=== PATIENT | female | born 1960 | race African-American/Black ===

== ENCOUNTER 2016-12-02 00:22 | Emergency (ER) | payer MEDICARE ==
[~2016-12-02] VITALS: Ht 167.6 cm; Wt 67.2 kg
[~2016-12-02 00:22] MED LIST: 1-ME1LIQ PO; ASPI81 PO; CLON.1 PO; CLON0.5T PO; COLA50CA PO; FLUO20TA20 PO; GABA100C4 PO; ISOS30TA3 PO; LEVEMIR SQ; LISI-363 PO; MECL25 PO; METO50CR PO; NIAC250C6 PO; NITR0.4S SL; OXYC5 PO; PROC10TA4 PO; SEVEL800 PO; ZOCO40TA PO; ZOFR4TAB3 PO
[2016-12-02 00:36] VITALS: BP 132/54; PULSE 66; RESP 16; TEMP 98.6; O2SAT 100
--- NOTE | 2016-12-02 00:40 | PD ---
HPI Chief Complaint: General Weakness Time Seen by Provider: 00:28 Travel History International Travel<30 days: No Contact w/Intl Traveler<30days: No Traveled to known affect area: No History of Present Illness HPI 56-year-old female with ESRD on HD, performs her own hemodialysis at home, brought in by embolus from home because while performing dialysis this evening the patient became very weak and lightheaded. She checked her blood pressure and it was 80 systolic. When EMS arrived her blood pressure was 130/60. When she arrived to the emergency department the patient reports that she feels improved. She denies fevers or recent illness. No chest pain or dyspnea. No melena or hematochezia. PFSH Past Medical History Anemia: Yes Arthritis: Yes (spine/ spinal stenosis) Asthma: Yes (enviromental asthma) Blood Disorders: Yes Anxiety: Yes Depression: Yes Cancer: No Cardiac Catheterization: Yes Cardiovascular Problems: Yes (STENTS, ORTHOSTATIC HYPOTENSION) High Cholesterol: Yes Chest Pain: Yes Cerebrovascular Accident: No Coronary Artery Disease: Yes Diabetes: Yes (INSULIN DEPENDENT) Dialysis: Yes (HEMODIALYSIS --) Diminished Hearing: No Endocrine: Yes Gastrointestinal Disorders: Yes GERD: Yes Glaucoma: Yes Genitourinary: Yes Headaches: Yes Hepatitis: No Hiatal Hernia: No Hypertension: Yes Immune Disorder: No Implanted Vascular Access Dvce: Yes (LUE AV FISTULA) Kidney Stones: No Musculoskeletal: Yes Neurologic: Yes Psychiatric: No Reproductive: No Respiratory: Yes (ASTHMA) Immunizations Current: No Renal Failure: Yes Sickle Cell Disease: Yes (TRAIT) Thyroid Disease: No Ulcer: Yes Menopausal: Yes Tubal Ligation: Yes Past Surgical History Abdominal Surgery: Yes (CHOLECYSTECTOMY) Body Medical Devices: peritoneal tenchoff tube Cardiac Surgery: Yes (LAD CARDIAC STENT, LUE AV FISTULA W/ STENT) Section: Yes (X2) Cholecystectomy: Yes Coronary Stent: Yes Endocrine Surgery: No Eye Surgery: Yes (RIGHT EYE VITRECTOMY, CATARACT SURGERY) Genitourinary Surgery: Yes (Tenchoff tube) Gynecologic Surgery: Yes (TUBAL LIG., HYSTERECTOMY, C SECTION) Hysterectomy: Yes Pacemaker: No Thoracic Surgery: No Other Surgery: Yes (LASER SX FOR VETRECTOMY, VAS CATH IN PLACE) Social History Alcohol Use: No Tobacco Use: No Substance Use: No Allergies-Medications (Allergen,Severity, Reaction): Coded Allergies: Cat Dander (Verified Allergy, Severe, 4/3/15) Dog Dander (Verified Allergy, Severe, 07/25/14) Nipride (Verified Allergy, Severe, HYPOTENSION, 07/25/14) Morphine (Unverified Adverse Reaction, Intermediate, Nausea/Vomiting, ) Reported Meds & Prescriptions Reported Meds & Active Scripts Active Zofran ODT (Ondansetron HCl) 4 Mg Tab 4 Mg PO Q6 PRN May substitute, non-ODT form Do not take within 6 hours of taking Reglan. Reported Oxycodone (Oxycodone HCl) 5 Mg Cap 5 Mg PO Q4H PRN Niacin 250 Mg Cap 500 Mg PO DAILY Metoprolol Succinate ER 50 mg (Metoprolol Succinate) 50 Mg Tab 50 Mg PO BID Antivert (Meclizine HCl) 25 Mg Tab 12.5 Mg PO Q6 PRN Lisinopril 20 mg (Lisinopril) 20 Mg Tab 1 Tab PO DAILY Isosorbide Mononitrate Er (Isosorbide Mononitrate) 30 Mg Tab 30 Mg PO DAILY Levemir Insulin (Insulin Detemir) 100 Units/Ml Inj 7 Units SQ BID Gabapentin 100 Mg Cap 100 Mg PO BID Colace (Docusate Sodium) 50 Mg Cap 50 Mg PO BID Catapres 0.1 mg (Clonidine HCl) 0.1 Mg Tab 1 Tab PO BID Hold evening dose for BP less than 150/90 Amlodipine Besylate 10 mg (Amlodipine Besylate) 10 Mg Tab 1 Tab PO DAILY Fluoxetine (Fluoxetine HCl) 20MG Cap 20 Mg PO DAILY Renvela (Sevelamer Carbonate) 800 Mg Tab 800 Mg PO TID *TAKE WITH MEALS* Compazine (Prochlorperazine Maleate) 10 Mg Tab 10 Mg PO Q6HPRN Take 1 tablet by mouth every 6 hours as needed for nausea and/or vomiting (generic for compazine) Clonazepam 0.5 Mg Tab 0.5 Mg PO BIDPRN Aspirin 81 Mg Tab 81 Mg PO DAILY Zocor 40 mg (Simvastatin) 40 Mg Tab 40 Mg PO HS Nitrostat (Nitroglycerin) 0.4 Mg Subl 0.4 Mg SL PRN 1 TAB SL EVERY 5 MINS X 3 PRN CHEST PAIN Review of Systems Except as stated in HPI: all other systems reviewed are Neg Physical Exam Narrative GENERAL: Well-developed, well-nourished, awake, alert, no apparent distress. SKIN: Focused skin assessment warm/dry. HEAD: Atraumatic. Normocephalic. EYES: Pupils equal and round. No scleral icterus. No injection or drainage. ENT: Mucous membranes pink and moist. NECK: Trachea midline. No JVD. CARDIOVASCULAR: Regular rate and rhythm. Left upper extremity fistula with thrill and bruit with dialysis cannulas in place. RESPIRATORY: No accessory muscle use. Clear to auscultation. Breath sounds equal bilaterally. GASTROINTESTINAL: Abdomen soft, non-tender, nondistended. MUSCULOSKELETAL: No obvious deformities. No clubbing. No cyanosis. No edema. NEUROLOGICAL: Awake and alert. No obvious cranial nerve deficits. Motor grossly within normal limits. Normal speech. PSYCHIATRIC: Appropriate mood and affect; insight and judgment normal. Data Data Last Documented VS Vital Signs Date Time Temp Pulse Resp B/P Pulse Ox O2 Delivery O2 Flow Rate FiO2 12/02/16 00:36 98.6 66 16 132/54 100 Orders Complete Blood Count With Diff (12/02/16 00:37) Comprehensive Metabolic Panel (12/02/16 00:37) Iv Access Insert/Monitor (12/02/16 00:37) Ecg Monitoring (12/02/16 00:37) Oximetry (12/02/16 00:37) Sodium Chloride 0.9% Flush (Ns Flush) (12/02/16 00:45) Electrocardiogram (12/02/16 00:37) Labs Laboratory Tests Test 12/02/16 01:05 White Blood Count 4.8 TH/MM3 Red Blood Count 3.91 MIL/MM3 Hemoglobin 11.6 GM/DL Hematocrit 34.0 % Mean Corpuscular Volume 87.0 FL Mean Corpuscular Hemoglobin 29.8 PG Mean Corpuscular Hemoglobin 34.2 % Concent Red Cell Distribution Width 14.6 % Platelet Count 101 TH/MM3 Mean Platelet Volume 9.0 FL Neutrophils (%) (Auto) 61.5 % Lymphocytes (%) (Auto) 26.2 % Monocytes (%) (Auto) 10.7 % Eosinophils (%) (Auto) 0.6 % Basophils (%) (Auto) 1.0 % Neutrophils # (Auto) 2.9 TH/MM3 Lymphocytes # (Auto) 1.3 TH/MM3 Monocytes # (Auto) 0.5 TH/MM3 Eosinophils # (Auto) 0.0 TH/MM3 Basophils # (Auto) 0.0 TH/MM3 CBC Comment DIFF FINAL Differential Comment Sodium Level 136 MEQ/L Potassium Level 4.4 MEQ/L Chloride Level 97 MEQ/L Carbon Dioxide Level 29.5 MEQ/L Anion Gap 10 MEQ/L Blood Urea Nitrogen 57 MG/DL Creatinine 8.82 MG/DL Estimat Glomerular Filtration 6 ML/MIN Rate Random Glucose 107 MG/DL Calcium Level 8.0 MG/DL Total Bilirubin 0.5 MG/DL Aspartate Amino Transf 24 U/L (AST/SGOT) Alanine Aminotransferase 22 U/L (ALT/SGPT) Alkaline Phosphatase 254 U/L Total Protein 7.3 GM/DL Albumin 3.7 GM/DL [facility] Medical Decision Making Medical Screen Exam Complete: Yes Emergency Medical Condition: Yes Interpretation(s) EKG: Sinus, rate 65, normal axis, normal intervals, no acute ischemic abnormality. Differential Diagnosis Hypotension during dialysis, anemia, metabolic abnormality, dysrhythmia Narrative Course Initial vital signs show heart rate 66, blood pressure 132/54, pulse ox 100% on room air, oral temp of 98.6F CBC shows WBC 4.8, hemoglobin 11.6, hematocrit 34, platelets 101. CMP is remarkable for BUN 57, creatinine 8.82, GFR 6, otherwise unremarkable. Potassium is 4.4. Bicarbonate is 29.5. She was observed in the emergency department for 2 hours. On reassessment she states she is feeling a lot better. She likely suffered from a hypotensive episode while doing home hemodialysis today. She feels well enough to go home. I believe she is stable for discharge home with outpatient follow-up with a primary care physician this week. She was informed on when to return to the emergency department. She verbalizes understanding and agreement with plan. Diagnosis Primary Impression: Episode of generalized weakness Referrals: Primary Care Physician 3 days Additional Instructions: Follow-up with a primary care physician or your arc trimmer this week. Return to the emergency department for worsening symptoms or any other concerns. Disposition: 01 DISCHARGE HOME Condition: Stable Jayden Fontenot MD Dec 02, 2016 00:39 Jayden Fontenot MD Dec 02, 2016 00:39
[2016-12-02] MEDS ORDERED: SODIUM CHLORIDE 0.9% FLUSH 10 ML FLUSH IV FLUSH PRN (00:45)
[2016-12-02 01:25] LABS: AUTOMATED NEUTROPHIL # 2.9 TH/MM3 (1.8-7.7); EOSINOPHIL % 0.6 % (0.0-4.0); HEMO FLAGS DIFF FINAL; LYMPH % 26.2 % (9.0-44.0); LYMPHOCYTE # 1.3 TH/MM3 (1.0-4.8); MEAN CORPUSCULAR HEMOGLOBIN 29.8 PG (27.0-34.0); MEAN CORPUSCULAR HGB CONC 34.2 % (32.0-36.0); MONO % 10.7 % (0.0-8.0); NEUT % 61.5 % (16.0-70.0); PLATELET COUNT 101 TH/MM3 (150-450); RED BLOOD COUNT 3.91 MIL/MM3 (4.00-5.30); RED CELL DISTRIBUTION WIDTH 14.6 % (11.6-17.2); WHITE BLOOD COUNT 4.8 TH/MM3 (4.0-11.0)
[2016-12-02 01:36] LABS: ALKALINE PHOSPHATASE 254 U/L (45-117); TOTAL BILIRUBIN ADULT 0.5 MG/DL (0.2-1.0)
[2016-12-02 01:37] LABS: ALT (GPT) 22 U/L (10-53); ANION GAP 10 MEQ/L (5-15); AST (GOT) 24 U/L (15-37); BICARBONATE 29.5 MEQ/L (21.0-32.0); CHLORIDE 97 MEQ/L (98-107); GLOMERULAR FILTRATION RATE 6 ML/MIN (>89); POTASSIUM 4.4 MEQ/L (3.5-5.1); SODIUM (NA) 136 MEQ/L (136-145)
[2016-12-02 01:38] LABS: BLOOD UREA NITROGEN 57 MG/DL (7-18)
--- NOTE | 2016-12-02 15:36 | EKG ---
Date Performed: 12/02/2016 Time Performed: 01:09:12 PTAGE: 56 years EKG: Sinus rhythm Compared to prior tracing no significant change NORMAL ECG PREVIOUS TRACING : 07/25/2014 02.14 DOCTOR: Glenn Saucedo Interpretating Date/Time 12/02/2016 15:34:31
== END 2016-12-02 03:22 | disposition home or self-care (01) ==
LOC: NEPC 00:22
DX: R53.1 Weakness (principal); R42 Dizziness and giddiness; D64.9 Anemia, unspecified; J45.909 Unspecified asthma, uncomplicated; I25.10 Atherosclerotic heart disease of native coronary artery without angina pectoris; E78.00 Pure hypercholesterolemia, unspecified; I12.9 Hypertensive chronic kidney disease with stage 1 through stage 4 chronic kidney disease, or unspecified chronic kidney disease; E11.22 Type 2 diabetes mellitus with diabetic chronic kidney disease; N18.9 Chronic kidney disease, unspecified
CPT/HCPCS: 80053; 85025; 93005; 99284

== ENCOUNTER 2017-05-30 18:33 | Inpatient (IN) | payer MEDICARE, MEDICAID ==
[2017-05-30 18:41] VITALS: BP 199/90; PULSE 71; RESP 18; TEMP 97.9; O2SAT 99
--- NOTE | 2017-05-30 19:44 | PD ---
HPI Chief Complaint: General Weakness Time Seen by Provider: 19:28 Travel History International Travel<30 days: No Contact w/Intl Traveler<30days: No Traveled to known affect area: No History of Present Illness HPI 57-year-old female to history of end-stage renal disease on dialysis Tuesdays, , Saturdays, presents via EMS for reported syncopal event. She reports over the past few days she has been having intermittent substernal chest pressure as well as a frontal headache, decreased appetite. She missed her dialysis on Monday because she wasn't feeling well. Today she was getting into the car in order to go to dialysis when she believes that she passed out. She reports that when she came to her neighbor and paramedics were there. She believes that she may been in a car for 3 hours based on the time. She reports that she currently feels somewhat better, has a slight frontal headache but no chest pressure. She denies any blurred vision, current dizziness, weakness, nausea or vomiting, abdominal pain. She has no other complaints at this time. PFSH Past Medical History Hx Anticoagulant Therapy: Yes (HEPARIN FOR FLUSH) Anemia: Yes Arthritis: Yes (spine/ spinal stenosis) Asthma: Yes (enviromental asthma) Blood Disorders: Yes Anxiety: Yes Depression: Yes Cancer: No Cardiac Catheterization: Yes Cardiovascular Problems: Yes (CAD, STENTS) High Cholesterol: Yes Chest Pain: Yes Cerebrovascular Accident: No Coronary Artery Disease: Yes Diabetes: Yes Patient Takes Glucophage: No Dialysis: Yes (HEMODIALYSIS -W-) Diminished Hearing: No Endocrine: Yes Gastrointestinal Disorders: Yes GERD: Yes Glaucoma: Yes Genitourinary: Yes Headaches: Yes Hepatitis: No Hiatal Hernia: No Heparin Induced Thrombocytopen: Yes (von willebrand disorder) Hypertension: Yes Immune Disorder: No Implanted Vascular Access Dvce: Yes (LUE AV FISTULA) Kidney Stones: No Medical other: Yes (GERD, ARTHRITIS) Musculoskeletal: Yes Neurologic: Yes Psychiatric: No Reproductive: No Respiratory: Yes (ASTHMA) Immunizations Current: No Renal Failure: Yes Sickle Cell Disease: Yes (TRAIT) Thyroid Disease: No Ulcer: Yes ?: Not Menopausal: Yes Tubal Ligation: Yes Past Surgical History Abdominal Surgery: Yes (CHOLECYSTECTOMY) Body Medical Devices: peritoneal tenchoff tube Cardiac Surgery: Yes (LAD CARDIAC STENT, LUE AV FISTULA W/ STENT) Section: Yes (X2) Cholecystectomy: Yes Coronary Stent: Yes Endocrine Surgery: No Eye Surgery: Yes (RIGHT EYE VITRECTOMY, CATARACT SURGERY) Genitourinary Surgery: Yes (Tenchoff tube) Gynecologic Surgery: Yes (TUBAL LIG., HYSTERECTOMY, C SECTION) Hysterectomy: Yes Pacemaker: No Thoracic Surgery: No Other Surgery: Yes (LASER SX FOR VETRECTOMY, VAS CATH IN PLACE) Social History Alcohol Use: No Tobacco Use: No Substance Use: No Allergies-Medications (Allergen,Severity, Reaction): Coded Allergies: cat dander (Unverified Allergy, Severe, 05/30/17) dog dander (Unverified Allergy, Severe, 05/30/17) nitroprusside sodium (Unverified Allergy, Severe, HYPOTENSION, 05/30/17) morphine (Unverified Adverse Reaction, Intermediate, Nausea/Vomiting, ) Reported Meds & Prescriptions Reported Meds & Active Scripts Active Zofran ODT (Ondansetron HCl) 4 Mg Tab 4 Mg PO Q6 PRN May substitute, non-ODT form Do not take within 6 hours of taking Reglan. Reported Oxycodone (Oxycodone HCl) 5 Mg Cap 5 Mg PO Q4H PRN Niacin 250 Mg Cap 500 Mg PO DAILY Metoprolol Succinate ER 50 mg (Metoprolol Succinate) 50 Mg Tab 50 Mg PO BID Antivert (Meclizine HCl) 25 Mg Tab 12.5 Mg PO Q6 PRN Lisinopril 20 mg (Lisinopril) 20 Mg Tab 1 Tab PO DAILY Isosorbide Mononitrate Er (Isosorbide Mononitrate) 30 Mg Tab 30 Mg PO DAILY Levemir Insulin (Insulin Detemir) 100 Units/Ml Inj 7 Units SQ BID Gabapentin 100 Mg Cap 100 Mg PO BID Colace (Docusate Sodium) 50 Mg Cap 50 Mg PO BID Catapres 0.1 mg (Clonidine HCl) 0.1 Mg Tab 1 Tab PO BID Hold evening dose for BP less than 150/90 Amlodipine Besylate 10 mg (Amlodipine Besylate) 10 Mg Tab 1 Tab PO DAILY Fluoxetine (Fluoxetine HCl) 20MG Cap 20 Mg PO DAILY Renvela (Sevelamer Carbonate) 800 Mg Tab 800 Mg PO TID *TAKE WITH MEALS* Compazine (Prochlorperazine Maleate) 10 Mg Tab 10 Mg PO Q6HPRN Take 1 tablet by mouth every 6 hours as needed for nausea and/or vomiting (generic for compazine) Clonazepam 0.5 Mg Tab 0.5 Mg PO BIDPRN Aspirin 81 Mg Tab 81 Mg PO DAILY Zocor 40 mg (Simvastatin) 40 Mg Tab 40 Mg PO HS Nitrostat (Nitroglycerin) 0.4 Mg Subl 0.4 Mg SL PRN 1 TAB SL EVERY 5 MINS X 3 PRN CHEST PAIN Review of Systems Except as stated in HPI: all other systems reviewed are Neg Physical Exam Narrative GENERAL: Well-developed well-nourished female in no acute distress. SKIN: Warm and dry. HEAD: Atraumatic. Normocephalic. EYES: Pupils equal and round. No scleral icterus. No injection or drainage. ENT: No nasal bleeding or discharge. Mucous membranes pink and moist. NECK: Trachea midline. No JVD. CARDIOVASCULAR: Regular rate and rhythm. No murmur appreciated. RESPIRATORY: No accessory muscle use. Clear to auscultation. Breath sounds equal bilaterally. GASTROINTESTINAL: Abdomen soft, non-tender, nondistended. Hepatic and splenic margins not palpable. MUSCULOSKELETAL: No obvious deformities. No clubbing. No cyanosis. No edema. Left upper extremity AV fistula with palpable thrill. NEUROLOGICAL: Awake and alert. No obvious cranial nerve deficits. Motor grossly within normal limits. Normal speech. PSYCHIATRIC: Appropriate mood and affect; insight and judgment normal. Data Data Last Documented VS Vital Signs Date Time Temp Pulse Resp B/P (MAP) Pulse Ox O2 Delivery O2 Flow Rate FiO2 05/30/17 20:22 85 16 201/91 (127) 98 Room Air 05/30/17 18:41 97.9 Orders Orders Electrocardiogram (05/30/17 19:40) Complete Blood Count With Diff (05/30/17 19:40) Comprehensive Metabolic Panel (05/30/17 19:40) Magnesium (Mg) (05/30/17 19:40) Ckmb (Isoenzyme) Profile (05/30/17 19:40) Troponin I (05/30/17 19:40) Act Partial Throm Time (Ptt) (05/30/17 19:40) Prothrombin Time / Inr (Pt) (05/30/17 19:40) Ct Brain W/O Iv Contrast(Rout) (05/30/17 19:40) Blood Glucose (05/30/17 19:40) Ecg Monitoring (05/30/17 19:40) Iv Access Insert/Monitor (05/30/17 19:40) Oximetry (05/30/17 19:40) Sodium Chloride 0.9% Flush (Ns Flush) (05/30/17 19:45) Phosphorus (Po4) (05/30/17 19:40) Metoprolol Tartrate (Lopressor) (05/30/17 20:30) Amlodipine (Norvasc) (05/30/17 20:30) CKMB (05/30/17 20:20) CKMB% (05/30/17 20:20) Potassium, Serum (K) (05/31/17 00:44) Calcium Gluconate Inj (Calcium Gluconate (05/30/17 21:45) Insulin Human Regular Inj (Novolin R Inj (05/30/17 22:00) Dextrose 50% In Radha (Vial) Inj (D50w (Vi (05/30/17 21:45) Albuterol Concentrated Neb (Albuterol Co (05/30/17 21:45) Consult Nephrology (05/30/17 ) Admit Order (Ed Use Only) (05/30/17 21:54) Labs Laboratory Tests Test 05/30/17 20:20 White Blood Count 4.4 TH/MM3 Red Blood Count 4.81 MIL/MM3 Hemoglobin 13.3 GM/DL Hematocrit 41.5 % Mean Corpuscular Volume 86.2 FL Mean Corpuscular Hemoglobin 27.6 PG Mean Corpuscular Hemoglobin Concent 32.0 % Red Cell Distribution Width 17.5 % Platelet Count 239 TH/MM3 Mean Platelet Volume 8.1 FL Neutrophils (%) (Auto) 80.8 % Lymphocytes (%) (Auto) 11.2 % Monocytes (%) (Auto) 7.8 % Eosinophils (%) (Auto) 0.0 % Basophils (%) (Auto) 0.2 % Neutrophils # (Auto) 3.6 TH/MM3 Lymphocytes # (Auto) 0.5 TH/MM3 Monocytes # (Auto) 0.3 TH/MM3 Eosinophils # (Auto) 0.0 TH/MM3 Basophils # (Auto) 0.0 TH/MM3 CBC Comment DIFF FINAL Differential Comment Prothrombin Time 10.6 SEC Prothromb Time International Ratio 1.0 RATIO Activated Partial Thromboplast Time 28.4 SEC Blood Urea Nitrogen 106 MG/DL Creatinine 11.30 MG/DL Random Glucose 112 MG/DL Total Protein 7.6 GM/DL Albumin 3.9 GM/DL Calcium Level 6.7 MG/DL Phosphorus Level 4.5 MG/DL Magnesium Level 2.3 MG/DL Alkaline Phosphatase 299 U/L Aspartate Amino Transf (AST/SGOT) 27 U/L Alanine Aminotransferase (ALT/SGPT) 32 U/L Total Bilirubin 0.6 MG/DL Sodium Level 139 MEQ/L Potassium Level 6.5 MEQ/L Chloride Level 103 MEQ/L Carbon Dioxide Level 23.3 MEQ/L Anion Gap 13 MEQ/L Estimat Glomerular Filtration Rate 4 ML/MIN Protein Corrected Calcium 6.5 MG/DL Total Creatine Kinase 158 U/L Creatine Kinase MB 2.0 NG/ML Troponin I 0.04 NG/ML MDM Medical Decision Making Medical Screen Exam Complete: Yes Emergency Medical Condition: Yes Medical Record Reviewed: Yes Differential Diagnosis Electrolyte abnormality, hypertensive urgency, intracranial hemorrhage, arrhythmia, dehydration, ACS Narrative Course 57-year-old female history of incisional disease presents with intermittent headache, lightheadedness, chest pressure over the past few days, missed her dialysis 3 days ago. Today she had a syncopal event in her car prior to going to dialysis today. On initial examination she is hypertensive-she did not take her nighttime doses of metoprolol and amlodipine. They were ordered for her. She was placed on ECG monitoring pulse oximetry. Twelve-lead EKG was obtained revealing sinus rhythm with peaked T waves. CT of the brain, chest x-ray, lab work was obtained. Upon reexamination her blood pressure has improved to 177/80. Lab work is notable for potassium 6.5, creatinine 11.3, protein corrected calcium 6.5. I discussed with the on-call sports physiotherapist Dr. Guzman who plans on having her dialyzed tonight. The patient will be given insulin and dextrose, calcium gluconate for treatment of her hyperkalemia/hypocalcemia. I discussed with the hospitalist Dr. Chin who is agreeable with admission for observation. Diagnosis Primary Impression: Hyperkalemia Additional Impressions: Hypocalcemia Syncope Admitting Information Admitting Physician Requests: Observation Antonino Robertson May 30, 2017 19:44
[2017-05-30] MEDS ORDERED: SODIUM CHLORIDE 0.9% FLUSH 10 ML FLUSH IVF PRN (19:45)
--- NOTE | 2017-05-30 20:18 | RADRPT ---
EXAM DATE/TIME: 05/30/2017 20:03 [facility] COMPARISON: CT BRAIN W/O CONTRAST, June 24, 2010, 20:49. INDICATIONS : Dizziness. RADIATION DOSE: 56.77 CTDIvol (mGy) MEDICAL HISTORY : Hypertension. Chronic obstructive pulmonary disease. Renal failure, chronic. SURGICAL HISTORY : Nephrectomy, left. ENCOUNTER: Initial ACUITY: 1 day PAIN SCALE: 8/10 LOCATION: cranial TECHNIQUE: Multiple contiguous axial images were obtained of the head. Using automated exposure control and adj ustment of the mA and/or kV according to patient size, radiation dose was kept as low as reasonably a chievable to obtain optimal diagnostic quality images. DICOM format image data is available electro nically for review and comparison. FINDINGS: CEREBRUM: The ventricles are normal for age. No evidence of midline shift, mass lesion, hemorrhage or acute in farction. No extra-axial fluid collections are seen. POSTERIOR FOSSA: The cerebellum and brainstem are intact. The 4th ventricle is midline. The cerebellopontine angle i s unremarkable. EXTRACRANIAL: The visualized portion of the orbits is intact. SKULL: The calvaria is intact. No evidence of skull fracture. CONCLUSION: Unremarkable and stable CT scan of the brain compared to the prior exam from 2010. Maurice Mac MD on May 30, 2017 at 20:15 Board Certified Radiologist. This report was verified electronically.
[2017-05-30 20:21] VITALS: RESP 18
[2017-05-30 20:22] VITALS: BP 201/91; PULSE 85; RESP 16; O2SAT 98
[2017-05-30] MEDS ORDERED: METOPROLOL TARTRATE 50 MG TAB PO ONE (20:30)
--- NOTE | 2017-05-30 20:54 | PD ---
Data Data Last Documented VS Vital Signs Date Time Temp Pulse Resp B/P (MAP) Pulse Ox O2 Delivery O2 Flow Rate FiO2 05/30/17 20:22 85 16 201/91 (127) 98 Room Air 05/30/17 18:41 97.9 Orders Orders Electrocardiogram (05/30/17 19:40) Complete Blood Count With Diff (05/30/17 19:40) Comprehensive Metabolic Panel (05/30/17 19:40) Magnesium (Mg) (05/30/17 19:40) Ckmb (Isoenzyme) Profile (05/30/17 19:40) Troponin I (05/30/17 19:40) Act Partial Throm Time (Ptt) (05/30/17 19:40) Prothrombin Time / Inr (Pt) (05/30/17 19:40) Ct Brain W/O Iv Contrast(Rout) (05/30/17 19:40) Blood Glucose (05/30/17 19:40) Ecg Monitoring (05/30/17 19:40) Iv Access Insert/Monitor (05/30/17 19:40) Oximetry (05/30/17 19:40) Sodium Chloride 0.9% Flush (Ns Flush) (05/30/17 19:45) Phosphorus (Po4) (05/30/17 19:40) Metoprolol Tartrate (Lopressor) (05/30/17 20:30) Amlodipine (Norvasc) (05/30/17 20:30) CKMB (05/30/17 20:20) CKMB% (05/30/17 20:20) Calcium Gluconate Inj (Calcium Gluconate (05/30/17 21:45) Insulin Human Regular Inj (Novolin R Inj (05/30/17 22:00) Dextrose 50% In Radha (Vial) Inj (D50w (Vi (05/30/17 21:45) Albuterol Concentrated Neb (Albuterol Co (05/30/17 21:45) Consult Nephrology (05/30/17 ) Admit Order (Ed Use Only) (05/30/17 21:54) Labs Laboratory Tests Test 05/30/17 20:20 White Blood Count 4.4 TH/MM3 Red Blood Count 4.81 MIL/MM3 Hemoglobin 13.3 GM/DL Hematocrit 41.5 % Mean Corpuscular Volume 86.2 FL Mean Corpuscular Hemoglobin 27.6 PG Mean Corpuscular Hemoglobin Concent 32.0 % Red Cell Distribution Width 17.5 % Platelet Count 239 TH/MM3 Mean Platelet Volume 8.1 FL Neutrophils (%) (Auto) 80.8 % Lymphocytes (%) (Auto) 11.2 % Monocytes (%) (Auto) 7.8 % Eosinophils (%) (Auto) 0.0 % Basophils (%) (Auto) 0.2 % Neutrophils # (Auto) 3.6 TH/MM3 Lymphocytes # (Auto) 0.5 TH/MM3 Monocytes # (Auto) 0.3 TH/MM3 Eosinophils # (Auto) 0.0 TH/MM3 Basophils # (Auto) 0.0 TH/MM3 CBC Comment DIFF FINAL Differential Comment Prothrombin Time 10.6 SEC Prothromb Time International Ratio 1.0 RATIO Activated Partial Thromboplast Time 28.4 SEC Blood Urea Nitrogen 106 MG/DL Creatinine 11.30 MG/DL Random Glucose 112 MG/DL Total Protein 7.6 GM/DL Albumin 3.9 GM/DL Calcium Level 6.7 MG/DL Phosphorus Level 4.5 MG/DL Magnesium Level 2.3 MG/DL Alkaline Phosphatase 299 U/L Aspartate Amino Transf (AST/SGOT) 27 U/L Alanine Aminotransferase (ALT/SGPT) 32 U/L Total Bilirubin 0.6 MG/DL Sodium Level 139 MEQ/L Potassium Level 6.5 MEQ/L Chloride Level 103 MEQ/L Carbon Dioxide Level 23.3 MEQ/L Anion Gap 13 MEQ/L Estimat Glomerular Filtration Rate 4 ML/MIN Protein Corrected Calcium 6.5 MG/DL Total Creatine Kinase 158 U/L Creatine Kinase MB 2.0 NG/ML Troponin I 0.04 NG/ML [facility] Medical Record Reviewed: Yes Supervised Visit with SHEFALI: Yes Narrative Course I, Dr. Pimentel, have reviewed the advance practice practitioner's documentation and am in agreement, met with the patient face to face, made the diagnosis, and the medical decision making was done by me. The patient was initially evaluated by Antonino. Please see their complete history and physical. *My assessment and Findings: The patient presents with a history of being on hemodialysis and unfortunately missing 2 of her recent dialysis sessions. The patient had a syncopal event earlier today and also experienced some chest pressure. During the course of the patients emergency department visit, the patients history, examination, and differential diagnosis were reviewed with the patient. The patient was placed on a conveyor monitor with oximetry and frequent blood pressure monitoring. The patient had IV access obtained and blood work sent for analysis. The patient was initially provided Medication for treatment of her hypertension. The patients laboratory studies were reviewed and remarkable for A white count of 4.4, hemoglobin 13.3, platelets 239 with 80.8 neutrophils. CMP is remarkable for a potassium of 6.5 which was treated with an albuterol nebulizer treatment dextrose followed by insulin administration, and calcium gluconate. The patient's BUN is 106, creatinine 11 point, protein corrected calcium is 6.5, alk phos is 299. Cardiac enzymes within normal limits. Radiology studies were reviewed and remarkable for a CT scan of the brain that shows no acute abnormality. The patient's case was discussed with the patient's medical health researcher who plans to do dialysis this evening. The patient will be admitted to the [facility]. Diagnosis Primary Impression: End stage kidney disease Additional Impressions: Hyperkalemia Syncope Qualified Codes: R55 - Syncope and collapse Chest pain Qualified Codes: R07.9 - Chest pain, unspecified Admitting Information Admitting Physician Requests: it Abi Pimentel MD May 30, 2017 20:54
[2017-05-30 21:03] LABS: AUTOMATED NEUTROPHIL # 3.6 TH/MM3 (1.8-7.7); BASOPHIL % 0.2 % (0.0-2.0); HEMATOCRIT 41.5 % (35.0-46.0); HEMOGLOBIN 13.3 GM/DL (11.6-15.3); LYMPH % 11.2 % (9.0-44.0); LYMPHOCYTE # 0.5 TH/MM3 (1.0-4.8); MEAN CELL VOLUME 86.2 FL (80.0-100.0); MEAN CORPUSCULAR HEMOGLOBIN 27.6 PG (27.0-34.0); MEAN PLATELET VOLUME 8.1 FL (7.0-11.0); MONO % 7.8 % (0.0-8.0); MONOCYTE # 0.3 TH/MM3 (0-0.9); NEUT % 80.8 % (16.0-70.0); PLATELET COUNT 239 TH/MM3 (150-450); RED BLOOD COUNT 4.81 MIL/MM3 (4.00-5.30); RED CELL DISTRIBUTION WIDTH 17.5 % (11.6-17.2); WHITE BLOOD COUNT 4.4 TH/MM3 (4.0-11.0)
[2017-05-30 21:15] LABS: PROTHROMBIN TIME - PATIENT 10.6 SEC (9.8-11.6)
[2017-05-30 21:35] LABS: BLOOD UREA NITROGEN 106 MG/DL (7-18)
[2017-05-30 21:36] LABS: ALBUMIN 3.9 GM/DL (3.4-5.0); ALKALINE PHOSPHATASE 299 U/L (45-117); ALT (GPT) 32 U/L (10-53); AST (GOT) 27 U/L (15-37); CALCIUM 6.7 MG/DL (8.5-10.1); GLOMERULAR FILTRATION RATE 4 ML/MIN (>89); GLUCOSE,RANDOM 112 MG/DL (74-106); MAGNESIUM 2.3 MG/DL (1.5-2.5); PHOSPHORUS 4.5 MG/DL (2.5-4.9); SODIUM (NA) 139 MEQ/L (136-145); TOTAL BILIRUBIN ADULT 0.6 MG/DL (0.2-1.0); TOTAL PROTEIN 7.6 GM/DL (6.4-8.2)
[2017-05-30 21:37] LABS: BICARBONATE 23.3 MEQ/L (21.0-32.0); CHLORIDE 103 MEQ/L (98-107); TROPONIN I 0.04 NG/ML (0.02-0.05)
[2017-05-30 21:38] LABS: CALCIUM-PROTEIN CORRECTED 6.5 MG/DL (8.5-10.1)
[2017-05-30] MEDS ORDERED: RESP: ALBUTEROL CONC 2.5 MG/0.5 ML NEB INH ONE (21:45)
[2017-05-30] MEDS ORDERED: DEXTROSE 50% IN WATER 50 ML VIAL(D50) IV PUSH ONE (21:45)
[2017-05-30] MEDS ORDERED: CALCIUM GLUCONATE 10% 1 GM/10 ML VIAL SLOW IVP ONE (21:45)
[2017-05-30] MEDS ORDERED: INSULIN HUMAN REGULAR 1,000 UNITS/10 ML VIAL IV PUSH ONE (22:00)
--- NOTE | 2017-05-30 22:37 | HHI.HP ---
HPI Service [facility] Hospitalists Primary Care Physician Nick Lazo MD Admission Diagnosis syncope, chest pain, cephalgia, hyperkalemia, hypocalcemia Chief Complaint: LOC, fatigue, malaise Travel History International Travel<30 Days: No Contact w/Intl Traveler <30 Da: No Traveled to Known Affected Are: No History of Present Illness 57-year-old female to history of end-stage renal disease on dialysis Tuesdays, , Saturdays, presents via EMS for reported syncopal event. She reports over the past few days she has been having dizziness, malaise, frontal headache, decreased appetite. Denies fevers. She denied CP presently or recently on my questioning, but reportedly told ER provider that she had had some intermittent chest pressure over last few days. Review of record indicates that she has had intermittent CP symptoms for several yrs. Her last heart cath on record was Mar 2012 demonstrating patent stent in LAD and no other significant CAD. She had neg lexiscan stress test Mar 2014. She missed her dialysis on Monday because she wasn't feeling well. Today she was getting into the car in order to go to dialysis when she believes that she passed out. She reports that when she came to her neighbor, who is her mandaen buckle and button maker, and paramedics were there. She believes that she may been in a car for up to 3 hours based on the time. She reports that she currently feels somewhat better, has a slight frontal headache but no chest pressure. She denies any blurred vision, current dizziness, weakness, nausea or vomiting, abdominal pain. She has no other complaints at this time. Denies any fevers or productive cough. Only produces small amount of urine every other day. Previously was on home hemodialysis, but recently resumed HD at clinic. She reports that she is soon due for revision of her AV fistula. Review of Systems Constitutional: COMPLAINS OF: Diaphoretic episodes, Fatigue, Change in appetite Eyes: DENIES: Blurred vision, Diplopia, Eye inflammation, Eye pain, Vision loss , Photosensitivity, Double Vision Ears, nose, mouth, throat: DENIES: Tinnitus, Hearing loss, Vertigo, Nasal discharge, Oral lesions, Throat pain, Hoarseness, Ear Pain, Running Nose, Epistaxis, Sinus Pain, Toothache, Odynophagia Respiratory: DENIES: Apneas, Cough, Snoring, Wheezing, Hemoptysis, Sputum production, Shortness of breath Cardiovascular: COMPLAINS OF: Syncope, Lower Extremity Edema, DENIES: Chest pain, Palpitations, Dyspnea on Exertion, PND, Orthopnea, Claudication Gastrointestinal: COMPLAINS OF: Anorexia, DENIES: Abdominal pain, Black stools , Bloody stools, BRB per rectum, Constipation, Diarrhea, GERD, Nausea, Reflux, Vomiting, Difficulty Swallowing, See HPI Musculoskeletal: COMPLAINS OF: Joint pain, Back pain Hematologic/lymphatic: DENIES: Bruising, Lymphadenopathy Immunologic/allergic: DENIES: Eczema, Urticaria Neurologic: COMPLAINS OF: Abnormal gait, Poor Balance, DENIES: Headache, Localized weakness, Paresthesias, Seizures, Speech Problems, Tremor Psychiatric: COMPLAINS OF: Anxiety Past Family Social History Past Medical History DM with ESRD, retinopathy, neuropathy Angina Anemia of CKD CAD GERD Secondary hyperparathyroidism HTN Lumbar radiculopathy Sickle cell trait von willebrand dz Past Surgical History Lumbar fusion L5-S1 AV fistula graft DE coronary stent in LAD, 2007 Cataract surgery bilat LESI Hyster with BTL Reported Medications Zofran ODT (Ondansetron HCl) 4 Mg Tab 4 Mg PO Q6 PRN May substitute, non-ODT form Do not take within 6 hours of taking Reglan. Oxycodone (Oxycodone HCl) 5 Mg Cap 5 Mg PO Q4H PRN Niacin 250 Mg Cap 500 Mg PO DAILY Metoprolol Succinate ER 50 mg (Metoprolol Succinate) 50 Mg Tab 50 Mg PO BID Antivert (Meclizine HCl) 25 Mg Tab 12.5 Mg PO Q6 PRN Lisinopril 20 mg (Lisinopril) 20 Mg Tab 1 Tab PO DAILY Gabapentin 100 Mg Cap 100 Mg PO BID Colace (Docusate Sodium) 50 Mg Cap 50 Mg PO BID Catapres 0.1 mg (Clonidine HCl) 0.1 Mg Tab 1 Tab PO BID Hold evening dose for BP less than 150/90 Fluoxetine (Fluoxetine HCl) 20MG Cap 20 Mg PO DAILY Renvela (Sevelamer Carbonate) 800 Mg Tab 800 Mg 2 pills PO TID *TAKE WITH MEALS* Aspirin 81 Mg Tab 81 Mg PO DAILY Atorvastatin 20mg/d. Lisinopril 20mg/d. Flagyl 500mg each , , after HD session Prilosec 20mg/d Epogen prn Hb <8 Sensipar 60mg 2 pills daily vit D 1000 units/d Nitrostat (Nitroglycerin) 0.4 Mg Subl 0.4 Mg SL PRN 1 TAB SL EVERY 5 MINS X 3 PRN CHEST PAIN Allergies: Coded Allergies: cat dander (Unverified Allergy, Severe, 05/30/17) dog dander (Unverified Allergy, Severe, 05/30/17) nitroprusside sodium (Unverified Allergy, Severe, HYPOTENSION, 05/30/17) morphine (Unverified Adverse Reaction, Intermediate, Nausea/Vomiting, ) Family History Father had AMI, Prostate CA Mother had DM Bro with ESRD Social History No tobacco, Etoh, illicits Previously worked in resp tx and ER registration Lives with adult daughter Attend mandaen regularly Disabled Physical Exam Vital Signs Vital Signs Date Time Temp Pulse Resp B/P (MAP) Pulse Ox O2 Delivery O2 Flow Rate FiO2 05/30/17 20:22 85 16 201/91 (127) 98 Room Air 05/30/17 20:21 18 05/30/17 18:41 97.9 71 18 199/90 (126) 99 Physical Exam GENERAL: This is a well-nourished, well-developed patient, in no apparent distress. A/o. Pleasant SKIN: No rashes, ecchymoses or lesions. Cool and dry. HEAD: Atraumatic. Normocephalic. No temporal or scalp tenderness. EYES: Pupils equal round and reactive. Extraocular motions intact. No scleral icterus. No injection or drainage. ENT: Nose without bleeding, purulent drainage or septal hematoma. Airway patent. NECK: Trachea midline. No JVD or lymphadenopathy. Supple, nontender, no meningeal signs. CARDIOVASCULAR: Regular rate and rhythm without murmurs, gallops, or rubs. RESPIRATORY: Clear to auscultation. Breath sounds equal bilaterally. No wheezes , rales, or rhonchi. GASTROINTESTINAL: Abdomen soft, non-tender, nondistended. No hepato-splenomegaly , or palpable masses. No guarding. MUSCULOSKELETAL: Extremities without clubbing, cyanosis. 1+ edema in distal LE. Ant otto TTP bilat, no palpable cords. NEUROLOGICAL: Awake and alert. Cranial nerves II through XII intact. Motor and sensory grossly within normal limits. Five out of 5 muscle strength in all muscle groups. Normal speech. Laboratory Laboratory Tests Test 05/30/17 20:20 White Blood Count 4.4 Red Blood Count 4.81 Hemoglobin 13.3 Hematocrit 41.5 Mean Corpuscular Volume 86.2 Mean Corpuscular Hemoglobin 27.6 Mean Corpuscular Hemoglobin Concent 32.0 Red Cell Distribution Width 17.5 Platelet Count 239 Mean Platelet Volume 8.1 Neutrophils (%) (Auto) 80.8 Lymphocytes (%) (Auto) 11.2 Monocytes (%) (Auto) 7.8 Eosinophils (%) (Auto) 0.0 Basophils (%) (Auto) 0.2 Neutrophils # (Auto) 3.6 Lymphocytes # (Auto) 0.5 Monocytes # (Auto) 0.3 Eosinophils # (Auto) 0.0 Basophils # (Auto) 0.0 CBC Comment DIFF FINAL Differential Comment Prothrombin Time 10.6 Prothromb Time International Ratio 1.0 Activated Partial Thromboplast Time 28.4 Blood Urea Nitrogen 106 Creatinine 11.30 Random Glucose 112 Total Protein 7.6 Albumin 3.9 Calcium Level 6.7 Phosphorus Level 4.5 Magnesium Level 2.3 Alkaline Phosphatase 299 Aspartate Amino Transf (AST/SGOT) 27 Alanine Aminotransferase (ALT/SGPT) 32 Total Bilirubin 0.6 Sodium Level 139 Potassium Level 6.5 Chloride Level 103 Carbon Dioxide Level 23.3 Anion Gap 13 Estimat Glomerular Filtration Rate 4 Protein Corrected Calcium 6.5 Total Creatine Kinase 158 Creatine Kinase MB 2.0 Troponin I 0.04 Result Diagram: 05/30/17201905/30/172019 Imaging Last [address] 05/30/171939 Signed Impressions: Service Date/Time: Tuesday, May 30, 2017 20:03 - CONCLUSION: Unremarkable and stable CT scan of the brain compared to the prior exam from 2010. MD Kasandra Whelan VTE Risk Assessment Caprini VTE Risk Assessment: Mod/High Risk (score >= 2) Caprini Risk Assessment Model Point Value = 1 Point Value = 2 Point Value = 3 Point Value = 5 Age 41-60 Minor surgery BMI > 25 kg/m2 Swollen legs Varicose veins or History of unexplained or recurrent spontaneous Oral contraceptives or hormone replacement Sepsis (< 1 month) Serious lung disease, including pneumonia (< 1 month) Abnormal pulmonary function Acute myocardial infarction Congestive heart failure (< 1 month) History of inflammatory bowel disease Medical patient at bed rest Age 61-74 Arthroscopic surgery Major open surgery (> 45 min) Laparoscopic surgery (> 45 min) Malignancy Confined to bed (> 72 hours) Immobilizing plaster cast Central venous access Age >= 75 History of VTE Family history of VTE Factor V Leiden Prothrombin [id number] Lupus anticoagulant Anticardiolipin antibodies Elevated serum homocysteine Heparin-induced thrombocytopenia Other congenital or acquired thrombophilia Stroke (< 1 month) Elective arthroplasty Hip, pelvis, or leg fracture Acute spinal cord injury (< 1 month) Prophylaxis Regimen Total Risk Factor Score Risk Level Prophylaxis Regimen 0-1 Low Early ambulation 2 Moderate Order ONE of the following: *Sequential Compression Device (SCD) *Heparin 5000 units SQ BID 3-4 Higher Order ONE of the following medications: *Heparin 5000 units SQ TID *Enoxaparin/Lovenox 40 mg SQ daily (WT < 150 kg, CrCl > 30 mL/min) *Enoxaparin/Lovenox 30 mg SQ daily (WT < 150 kg, CrCl > 10-29 mL/min) *Enoxaparin/Lovenox 30 mg SQ BID (WT < 150 kg, CrCl > 30 mL/min) AND/OR *Sequential Compression Device (SCD) 5 or more Highest Order ONE of the following medications: *Heparin 5000 units SQ TID (Preferred with Epidurals) *Enoxaparin/Lovenox 40 mg SQ daily (WT < 150 kg, CrCl > 30 mL/min) *Enoxaparin/Lovenox 30 mg SQ daily (WT < 150 kg, CrCl > 10-29 mL/min) *Enoxaparin/Lovenox 30 mg SQ BID (WT < 150 kg, CrCl > 30 mL/min) AND *Sequential Compression Device (SCD) Assessment and Plan Problem List: (1) End stage kidney disease ICD Codes: N18.6 - End stage kidney disease Status: Chronic Plan: acute worsening due to missed dialysis sessions. Mild hyperkalemia noted. Her referral coordinator was contacted by ER provider and HD planned tonight per his report. recheck lytes in AM. Mgmt per nephrology (2) Syncope ICD Codes: R55 - Syncope and collapse Status: Acute Plan: ? etiology. Possibly due to metabolic disturbance, decreased PO intake Will check echo, tele, repeat labs. Follow clinically. CT brain negative and no focal deficits on exam (3) Hyperkalemia ICD Codes: E87.5 - Hyperkalemia Status: Acute Plan: secondary to ESRD. HD planned. Follow. No arrhythmia noted. Tele. (4) Lumbar radicular pain ICD Codes: M54.16 - Lumbar radicular pain Status: Chronic Plan: pain rx as needed (5) HTN (hypertension) ICD Codes: I10 - HTN (hypertension) Status: Chronic Plan: resume meds. Outpt BPs quite variable at times (6) Chest pain ICD Codes: R07.9 - Chest pain Status: Chronic Plan: Pt denied current or recent CP to me however reported intermittent chest pressure to ER provider. Trop and EKG neg for acute findings. Will repeat. She had neg cath with noted patent stent in LAD in 2011. Neg Lexiscan in 03/2014. Outpt notes indicate chronic intermittent anginal symptoms which are likely a/w small vessel dz or spasm Code Status full Discussed Condition With Pt and ER provider Problem Qualifiers (1) HTN (hypertension): Qualified Codes: I10 - Essential (primary) hypertension Kevin Chin MD PhD May 30, 2017 22:37
[2017-05-30] MEDS ORDERED: NITROGLYCERIN 0.4 MG SL 25 TABS/BTL SL PRN ×2 (22:45→23:45)
[2017-05-30] MEDS: cloNIDine HCL 0.1 MG TAB PO SCH (22:45)
[2017-05-30 22:58] VITALS: BP 172/88; PULSE 82; RESP 16; O2SAT 98
[2017-05-30] MEDS ORDERED: MANNITOL 12.5 GM/50 ML VIAL IV PUSH PRN (23:45)
[2017-05-30] MEDS ORDERED: SODIUM CHLORIDE 0.9% FLUSH 10 ML FLUSH IV FLUSH PRN (23:45)
[2017-05-30] MEDS ORDERED: cloNIDine HCL 0.1 MG TAB PO PRN (23:45)
[2017-05-30] MEDS ORDERED: HEPARIN SODIUM - IV 10,000 UNITS/10 ML VIAL OTHER PRN (23:45)
[2017-05-30] MEDS ORDERED: diphenhydrAMINE HCL 25 MG CAP PO PRN (23:45)
[2017-05-30] MEDS ORDERED: GENTAMICIN SULFATE 20 MG/2 ML VIAL OTHER PRN (23:45)
[2017-05-30] MEDS ORDERED: ONDANSETRON HCL 4 MG/2 ML VIAL IV PUSH PRN (23:45)
[2017-05-30] MEDS ORDERED: ACETAMINOPHEN 325 MG TAB PO PRN (23:45)
[2017-05-30] MEDS ORDERED: ALBUMIN 25% 25 GM/100 ML BAG IV PRN (23:45)
[2017-05-30] MEDS ORDERED: SODIUM CHLOR 0.9% 1000 ML OTHER PRN ×2 (23:45)
[2017-05-30] MEDS ORDERED: GELATIN 12 MM/7 MM FOAM TOPICAL PRN (23:45)
[2017-05-30] MEDS ORDERED: NS 250 ML IV PRN (23:45)
[2017-05-30] MEDS ORDERED: HEPARIN SODIUM - IV 10,000 UNITS/10 ML VIAL IV FLUSH PRN (23:45)
[2017-05-31] VITALS (9 sets, daily range): BP systolic 133–166; BP diastolic 60–72; PULSE 53–63; RESP 16–18; TEMP 98–98.6; O2SAT 97–100
[2017-05-31] MEDS: cloNIDine HCL 0.1 MG TAB PO SCH ×3 (02:58→20:34)
[2017-05-31] MEDS: oxyCODONE/ACETAMINOPHEN 5 MG/325 MG TAB PO PRN (03:29)
[2017-05-31 05:48] LABS: BICARBONATE 29.2 MEQ/L (21.0-32.0); CALCIUM 6.9 MG/DL (8.5-10.1); CALCIUM-PROTEIN CORRECTED 7.5 MG/DL (8.5-10.1); CREATININE 6.98 MG/DL (0.50-1.00); TOTAL BILIRUBIN ADULT 0.8 MG/DL (0.2-1.0); TROPONIN I 0.04 NG/ML (0.02-0.05)
[2017-05-31] MEDS: INSULIN ASPART SUPPLEMENTAL SCALE SQ SCH ×4 (08:00→20:35)
[2017-05-31] MEDS: FLUoxetine HCL 20 MG CAP PO SCH (09:00)
[2017-05-31] MEDS ORDERED: CINACALCET HYDROCHLORIDE 30 MG TAB PO SCH (09:00)
[2017-05-31] MEDS ORDERED: METOPROLOL SUCCINATE 50 MG EXTENDED RELEASE TAB PO SCH (09:00)
[2017-05-31] MEDS: GABAPENTIN 100 MG CAP PO SCH ×2 (09:30→20:34)
[2017-05-31] MEDS: ASPIRIN 81 MG CHEW TAB PO SCH (09:31)
[2017-05-31] MEDS: SEVELAMER CARBONATE 800 MG TAB PO SCH ×3 (09:31→17:53)
--- NOTE | 2017-05-31 09:57 | PD.CONS ---
HPI Service Nephrology Consult Requested By Reason for Consult ESRD on HD Primary Care Physician Nick Lazo MD History of Present Illness This is a 57 y/o dialysis patient with whom we follow in outpatient setting. Typical TTS HD, she missed Monday due to not feeling well, yesterday on her way to treatment she had syncopal episode therefore came to ER for evaluation and treatment. She was in the car for over 3 hours per her estimation. Her last HD was last Monday. On arrival her K was 6.5, creatinine was over 11. She was dialyzed last night, 4L fluid removal. She has multiple complaints this admission including headache, right shoulder and chest heaviness, fatigue. She is awake, not in distress. Denies nausea/vomiting/diarrhea, recent infections, fever/chills, or sick contacts. We were consulted to assist with management. (Pearl Lockett) Review of Systems Constitutional: COMPLAINS OF: Fatigue, DENIES: Fever Respiratory: COMPLAINS OF: Shortness of breath Cardiovascular: COMPLAINS OF: Chest pain, Syncope, DENIES: Palpitations, Dyspnea on Exertion, Lower Extremity Edema Gastrointestinal: DENIES: Abdominal pain Neurologic: DENIES: Abnormal gait (Pearl Lockett) Past Family Social History Allergies: Coded Allergies: cat dander (Unverified Allergy, Severe, 05/30/17) dog dander (Unverified Allergy, Severe, 05/30/17) nitroprusside sodium (Unverified Allergy, Severe, HYPOTENSION, 05/30/17) morphine (Unverified Adverse Reaction, Intermediate, Nausea/Vomiting, ) Past Medical History ESRD on HD TTS DMII retinopathy, neuropathy, nephropahty Angina Anemia of CKD CAD GERD Secondary hyperparathyroidism HTN Lumbar radiculopathy Sickle cell trait von willebrand dz Past Surgical History Lumbar fusion L5-S1 AV fistula left arm DE coronary stent in LAD, 2007 Cataract surgery B/L RICK Reported Medications Zofran ODT (Ondansetron HCl) 4 Mg Tab 4 Mg PO Q6 PRN May substitute, non-ODT form Do not take within 6 hours of taking Reglan. Oxycodone (Oxycodone HCl) 5 Mg Cap 5 Mg PO Q4H PRN Niacin 250 Mg Cap 500 Mg PO DAILY Metoprolol Succinate ER 50 mg (Metoprolol Succinate) 50 Mg Tab 50 Mg PO BID Antivert (Meclizine HCl) 25 Mg Tab 12.5 Mg PO Q6 PRN Lisinopril 20 mg (Lisinopril) 20 Mg Tab 1 Tab PO DAILY Gabapentin 100 Mg Cap 100 Mg PO BID Colace (Docusate Sodium) 50 Mg Cap 50 Mg PO BID Catapres 0.1 mg (Clonidine HCl) 0.1 Mg Tab 1 Tab PO BID Hold evening dose for BP less than 150/90 Fluoxetine (Fluoxetine HCl) 20MG Cap 20 Mg PO DAILY Renvela (Sevelamer Carbonate) 800 Mg Tab 800 Mg 2 pills PO TID *TAKE WITH MEALS* Aspirin 81 Mg Tab 81 Mg PO DAILY Atorvastatin 20mg/d. Lisinopril 20mg/d. Flagyl 500mg each , , after HD session Prilosec 20mg/d Epogen prn Hb <8 Sensipar 60mg 2 pills daily vit D 1000 units/d Nitrostat (Nitroglycerin) 0.4 Mg Subl 0.4 Mg SL PRN 1 TAB SL EVERY 5 MINS X 3 PRN CHEST PAIN Active Ordered Medications Current Medications Medications (Trade) Dose Ordered Sig/Bayron Route Start Time Stop Time Status Last Admin (NS Flush) 2 ml UNSCH PRN IVF 05/30/17 19:45 (NovoLOG SUPPLEMENTAL SCALE) 1 ACHS SLIDING SCALE SQ 05/31/17 08:00 (Aspirin Chew) 81 mg DAILY PO 05/31/17 09:00 05/31/17 09:31 (Catapres) 0.1 mg BID PO 05/30/17 22:45 05/31/17 09:31 (Neurontin) 100 mg BID PO 05/31/17 09:00 05/31/17 09:30 (Toprol Xl) 50 mg BID PO 05/31/17 09:00 (Nitrostat Sl) 0.4 mg Q6HR PRN SL 05/30/17 22:45 UNV (PROzac) 20 mg DAILY PO 05/31/17 09:00 (Renvela) 1,600 mg TIDAC PO 05/31/17 08:00 05/31/17 09:31 (Percocet 5-325 Mg) 1 tab Q6H PRN PO 05/30/17 22:45 05/31/17 03:29 Sodium Chloride 1,000 ml @ 0 mls/hr TITRATE PRN OTHER 05/30/17 23:45 (Heparin Inj) 8,000 units UNSCH PRN IV FLUSH 05/30/17 23:45 Sodium Chloride 1,000 ml @ 200 mls/hr Q5H PRN OTHER 05/30/17 23:45 Sodium Chloride 200 ml @ 0 mls/hr UNSCH PRN IV 05/30/17 23:45 (Mannitol Inj) 12.5 gm UNSCH PRN IV PUSH 05/30/17 23:45 Albumin Human 100 ml @ 60 mls/hr UNSCH PRN IV 05/30/17 23:45 (NS Flush) 5 ml UNSCH PRN IV FLUSH 05/30/17 23:45 (Heparin Inj) Dwell Heparin to f... UNSCH PRN OTHER 05/30/17 23:45 (Gentamicin Inj) 10 mg UNSCH PRN OTHER 05/30/17 23:45 (Gelfoam 12 Mm/7 Mm Top) 1 foam UNSCH PRN TOPICAL 05/30/17 23:45 (Zofran Inj) 4 mg UNSCH PRN IV PUSH 05/30/17 23:45 (Tylenol) 650 mg UNSCH X1 PRN PO 05/30/17 23:45 06/04/17 23:44 (Benadryl) 25 mg UNSCH PRN PO 05/30/17 23:45 (Nitrostat Sl) 0.4 mg UNSCH PRN SL 05/30/17 23:45 (Catapres) 0.1 mg UNSCH PRN PO 05/30/17 23:45 Family History Several members have DM II Social History No smoking, ETOH, or illicit drug use She is single Lives with roommate Full Code (Pearl Lockett) Physical Exam Vital Signs Vital Signs Date Time Temp Pulse Resp B/P (MAP) Pulse Ox O2 Delivery O2 Flow Rate FiO2 05/31/17 07:28 98.2 59 18 166/72 (103) 100 05/31/17 04:06 60 05/31/17 04:03 98.4 58 18 133/60 (84) 100 05/30/17 22:58 82 16 172/88 (116) 98 Room Air 05/30/17 20:22 85 16 201/91 (127) 98 Room Air 05/30/17 20:21 18 05/30/17 18:41 97.9 71 18 199/90 (126) 99 Physical Exam Middle aged AAF, lying in bed not in distress S1/S2, RRR without murmurs Lungs clear Left arm + thrill/bruit Abd soft, non tender No extremity edema, tender to palpation Laboratory Laboratory Tests Test 05/30/17 20:20 05/31/17 04:49 White Blood Count 4.4 Red Blood Count 4.81 Hemoglobin 13.3 Hematocrit 41.5 Mean Corpuscular Volume 86.2 Mean Corpuscular Hemoglobin 27.6 Mean Corpuscular Hemoglobin Concent 32.0 Red Cell Distribution Width 17.5 Platelet Count 239 Mean Platelet Volume 8.1 Neutrophils (%) (Auto) 80.8 Lymphocytes (%) (Auto) 11.2 Monocytes (%) (Auto) 7.8 Eosinophils (%) (Auto) 0.0 Basophils (%) (Auto) 0.2 Neutrophils # (Auto) 3.6 Lymphocytes # (Auto) 0.5 Monocytes # (Auto) 0.3 Eosinophils # (Auto) 0.0 Basophils # (Auto) 0.0 CBC Comment DIFF FINAL Differential Comment Prothrombin Time 10.6 Prothromb Time International Ratio 1.0 Activated Partial Thromboplast Time 28.4 Blood Urea Nitrogen 106 53 Creatinine 11.30 6.98 Random Glucose 112 132 Total Protein 7.6 6.0 Albumin 3.9 3.0 Calcium Level 6.7 6.9 Phosphorus Level 4.5 Magnesium Level 2.3 Alkaline Phosphatase 299 220 Aspartate Amino Transf (AST/SGOT) 27 17 Alanine Aminotransferase (ALT/SGPT) 32 25 Total Bilirubin 0.6 0.8 Sodium Level 139 138 Potassium Level 6.5 4.6 Chloride Level 103 100 Carbon Dioxide Level 23.3 29.2 Anion Gap 13 9 Estimat Glomerular Filtration Rate 4 7 Protein Corrected Calcium 6.5 7.5 Total Creatine Kinase 158 Creatine Kinase MB 2.0 Troponin I 0.04 0.04 (Pearl Lockett) Result Diagram: 05/30/17201905/31/17 0449 Imaging Last [address] 05/30/171939 Signed Impressions: Service Date/Time: Tuesday, May 30, 2017 20:03 - CONCLUSION: Unremarkable and stable CT scan of the brain compared to the prior exam from 2010. Maurice Mac MD (Pearl Lockett) Assessment and Plan Problem List: (1) ESRD (end stage renal disease) ICD Codes: N18.6 - ESRD (end stage renal disease) Status: Acute Plan: HD yesterday (4L UF), on TTS HD, due tomorrow Repeat potassium has improved after dialysis Avoid IVF administration High protein, low phosphorus diet when no longer NPO AV access left arm works well, avoid left arm procedures Has existing outpatient arrangements if discharged (2) Syncope ICD Codes: R55 - Syncope and collapse Status: Acute Plan: Imaging negative so far Work up per hospitalist (3) Metabolic bone disease ICD Codes: M89.8X9 - Metabolic bone disease Status: Acute Plan: On sevelamer with meals Hold Sensipar due to hypocalcemia (4) HTN (hypertension) ICD Codes: I10 - HTN (hypertension) Status: Chronic Plan: Continue home medications; on metoprolol and clonidine (5) Diabetes mellitus ICD Codes: E11.9 - Type 2 diabetes mellitus without complications Plan: Insulin as needed, maintain glucose 140-180 mg/dL while hospitalized (Pearl Lockett) Assessment and Plan patient was seen and examined. She was emergently dialyzed due to hyperkalemia and fluid overload. [place] much better today, she can be discharged from renal standpoint. Patient was advised not to miss dialysis treatments. (Darshan Guzman MD) Problem Qualifiers (1) HTN (hypertension): Qualified Codes: I10 - Essential (primary) hypertension Pearl Lockett May 31, 2017 09:57 Darshan Guzman MD May 31, 2017 17:49
--- NOTE | 2017-05-31 11:09 | HHI.PR ---
Subjective Remarks Pt overall feeling better today She had 4L of fluid dialyzed off yesterday evening She still feels like she has excess fluid that needs to be dialyzed off still Afebrile NO chest pain Objective Vitals Vital Signs Date Time Temp Pulse Resp B/P (MAP) Pulse Ox O2 Delivery O2 Flow Rate FiO2 05/31/17 08:00 60 05/31/17 07:28 98.2 59 18 166/72 (103) 100 05/31/17 04:06 60 05/31/17 04:03 98.4 58 18 133/60 (84) 100 05/30/17 22:58 82 16 172/88 (116) 98 Room Air 05/30/17 20:22 85 16 201/91 (127) 98 Room Air 05/30/17 20:21 18 05/30/17 18:41 97.9 71 18 199/90 (126) 99 Result Diagram: 05/30/17201905/31/17 0449 Other Results Laboratory Tests Test 05/30/17 20:20 05/31/17 04:49 White Blood Count 4.4 TH/MM3 Red Blood Count 4.81 MIL/MM3 Hemoglobin 13.3 GM/DL Hematocrit 41.5 % Mean Corpuscular Volume 86.2 FL Mean Corpuscular Hemoglobin 27.6 PG Mean Corpuscular Hemoglobin Concent 32.0 % Red Cell Distribution Width 17.5 % Platelet Count 239 TH/MM3 Mean Platelet Volume 8.1 FL Neutrophils (%) (Auto) 80.8 % Lymphocytes (%) (Auto) 11.2 % Monocytes (%) (Auto) 7.8 % Eosinophils (%) (Auto) 0.0 % Basophils (%) (Auto) 0.2 % Neutrophils # (Auto) 3.6 TH/MM3 Lymphocytes # (Auto) 0.5 TH/MM3 Monocytes # (Auto) 0.3 TH/MM3 Eosinophils # (Auto) 0.0 TH/MM3 Basophils # (Auto) 0.0 TH/MM3 CBC Comment DIFF FINAL Differential Comment Prothrombin Time 10.6 SEC Prothromb Time International Ratio 1.0 RATIO Activated Partial Thromboplast Time 28.4 SEC Blood Urea Nitrogen 106 MG/DL 53 MG/DL Creatinine 11.30 MG/DL 6.98 MG/DL Random Glucose 112 MG/DL 132 MG/DL Total Protein 7.6 GM/DL 6.0 GM/DL Albumin 3.9 GM/DL 3.0 GM/DL Calcium Level 6.7 MG/DL 6.9 MG/DL Phosphorus Level 4.5 MG/DL Magnesium Level 2.3 MG/DL Alkaline Phosphatase 299 U/L 220 U/L Aspartate Amino Transf (AST/SGOT) 27 U/L 17 U/L Alanine Aminotransferase (ALT/SGPT) 32 U/L 25 U/L Total Bilirubin 0.6 MG/DL 0.8 MG/DL Sodium Level 139 MEQ/L 138 MEQ/L Potassium Level 6.5 MEQ/L 4.6 MEQ/L Chloride Level 103 MEQ/L 100 MEQ/L Carbon Dioxide Level 23.3 MEQ/L 29.2 MEQ/L Anion Gap 13 MEQ/L 9 MEQ/L Estimat Glomerular Filtration Rate 4 ML/MIN 7 ML/MIN Protein Corrected Calcium 6.5 MG/DL 7.5 MG/DL Total Creatine Kinase 158 U/L Creatine Kinase MB 2.0 NG/ML Troponin I 0.04 NG/ML 0.04 NG/ML Imaging Last [address] 05/30/171939 Signed Impressions: Service Date/Time: Tuesday, May 30, 2017 20:03 - CONCLUSION: Unremarkable and stable CT scan of the brain compared to the prior exam from 2010. Maurice Mac MD Objective Remarks General: NAD, AAOx3 Chest: CTA Cardiac: Regular, ilya Abd: +BS, soft ND/NT Ext: LUE with AVF present A/P Problem List: (1) End stage kidney disease ICD Codes: N18.6 - End stage kidney disease Status: Chronic Plan: - Pt is a 57 y/o female with ESRD on dialysis Tuesdays, , Saturdays, who presented to the ED via EMS for reported syncopal event on 05/30/17. - Pt reportedly missed her HD on 05/27/17 because she wasn't feeling well. She reported over the past few days she has been having dizziness, malaise, frontal headache, decreased appetite. - At admission she had noted acute worsening of her CKD due to missed dialysis sessions. Mild hyperkalemia noted. - Nephrology was consulted and pt had HD last night with 4L fluid dialyzed off. - Renal function is better today with Cr 6.98 and potassium 4.6 - Pt will continue HD on schedule (2) Syncope ICD Codes: R55 - Syncope and collapse Status: Acute Plan: - Pt takes Metoprolol 50mg po BID, Amlodipine 10mg po daily, Clonidine 0.1mg po BID, Lisinopril 20mg po daily PRN for SBP over 160, Renvela 1600mg po TID, Sensipar 60mg po daily, Fluoxetine 20mg po daily, Methocarbamol 500mg po BID PRN - She reports that she was recently resumed on her BP meds (metoprolol, Lisinopril, Clonidine, and Norvasc) within the last week or so because her BP hs been rising. - Syncope may have been related to BP going too low or HR going too low vs. possibly metabolic disturbance, decreased PO intake - Check 2D echo - Telemetry with some bradycardia into the 50s - Check Carotid US - Decrease Metoprolol to 25mg po BID. - CT brain negative and no focal deficits on exam (3) Hyperkalemia ICD Codes: E87.5 - Hyperkalemia Status: Acute Plan: - Secondary to ESRD. - Nephrology following. - No arrhythmia noted. - Telemetry. (4) Lumbar radicular pain ICD Codes: M54.16 - Lumbar radicular pain Status: Chronic Plan: - Pain control as needed (5) HTN (hypertension) ICD Codes: I10 - HTN (hypertension) Status: Chronic Plan: - See above - Pt resumed on Metoprolol but at decrease dose of 25mg po BID given noted bradycardia currently - Hold Lisinopril - Cont. Norvasc 10mg po daily - Clonidine PRN - Monitor HR and BP (6) Chest pain ICD Codes: R07.9 - Chest pain Status: Chronic Plan: - Pt denied current or recent CP to me however reported intermittent chest pressure to ER provider. - Trop and EKG neg for acute findings. - She had neg cath with noted patent stent in LAD in 2011. - Neg Lexiscan in 03/2014. - Outpt notes indicate chronic intermittent anginal symptoms which are likely a/ w small vessel dz or spasm Assessment and Plan Patient examined. Assessment and plan formulated with Aracelis Burrows PA-C. I agree with the above. syncope. unwitnessed. no pre warning. ?bradycardia due to bb started 5 days ago...HR 50 now. lower bb but continue given her cad. monitor on tele. echo/carotid pending. cont hd for esrd. probably d/c tomorrow. pt absolutely denies any cp or recent angina Problem Qualifiers (1) HTN (hypertension): Qualified Codes: I10 - Essential (primary) hypertension Aracelis Burrows May 31, 2017 11:09 Glenn Machado MD May 31, 2017 15:01
--- NOTE | 2017-05-31 12:52 | EKG ---
Date Performed: 05/30/2017 Time Performed: 20:22:40 PTAGE: 57 years EKG: Sinus rhythm NORMAL ECG PREVIOUS TRACING : 12/02/2016 01.09 DOCTOR: Vimal Garza Interpretating Date/Time 05/31/2017 12:48:00
[2017-05-31] MEDS ORDERED: METH500T3 PO (12:55)
[2017-05-31] MEDS ORDERED: AMLO10TA2 PO (12:58)
--- NOTE | 2017-05-31 18:07 | RADRPT ---
EXAM DATE/TIME: 05/31/2017 17:32 [facility] COMPARISON: No previous studies available for comparison. INDICATIONS : Syncope. MEDICAL HISTORY : Myocardial infarction. Congestive heart failure. Hypercholesterolemia. CAD. Hypertension. Asthma. Ulc er. Arthritis. Osteoporosis. ESRD. Anemia. GERD. SURGICAL HISTORY : Coronary artery stent. Cholecystectomy. Hysterectomy. Cardiac cath. Tubal ligation. Spinal surgery, x 2. ENCOUNTER: Initial ACUITY: 1 day PAIN SCORE: 0/10 LOCATION: Bilateral neck PEAK SYSTOLIC VELOCITIES (cm/sec): ICA/CCA RATIO: Right: 1.2 Left: 1.5 ICA: Right: 89 Left: 112 CCA: Right: 75 Left: 76 ECA: Right: 136 Left: 62 VERTEBRAL: Right: 52 antegrade Left: 55 antegrade Elevated flow velocities and ICA/CCA ratios have been found to correlate with increased degrees of vessel stenosis, calculated as percentage of diameter relative to a normal segment of distal ICA/CCA FINDINGS: RIGHT CAROTID: No significant stenosis is visualized. The waveforms are within normal limits. LEFT CAROTID: No significant stenosis is visualized. The waveforms are within normal limits. VERTEBRAL ARTERIES: Antegrade flow is seen in both vertebral arteries. MISCELLANEOUS: None. CONCLUSION: No evidence of flow-limiting carotid stenosis. Maxime Cottrell MD on May 31, 2017 at 18:04 Board Certified Radiologist. This report was verified electronically.
--- NOTE | 2017-05-31 19:07 | ECHRPT ---
Indication: CONCLUSIONS The left ventricular systolic function is normal with an estimated ejection fraction in the range of 60-65%. Mild concentric left ventricular hypertrophy. Doppler parameters are consistent with a pseudonormal left ventricular filling pattern with concomin ant abnormal relaxation and increased filling pressure (grade 2 diastolic dysfunction). Mild mitral valve regurgitation. Trace aortic valve regurgitation. There is mild tricuspid valve regurgitation. BP: 166 / 72 HR: 103 Rhythm: Sinus MEASUREMENTS (Male / Female) Normal Values Technical Quality:Excellent 2D ECHO LV Diastolic Diameter PLAX 5.0 cm 4.2 - 5.9 / 3.9 - 5.3 cm LV Systolic Diameter PLAX 3.3 cm IVS Diastolic Thickness 1.3 cm 0.6 - 1.0 / 0.6 - 0.9 cm LVPW Diastolic Thickness 1.3 cm 0.6 - 1.0 / 0.6 - 0.9 cm LV Relative Wall Thickness 0.5 RV Internal Dim ED PLAX 2.9 cm LVOT Diameter 1.9 cm LA Systolic Diameter LX 3.9 cm 3.0 - 4.0 / 2.7 - 3.8 cm LV Ejection Fraction MOD 4C 60.0 % LV Ejection Fraction 4C AL 60.8 % M-MODE Aortic Root Diameter MM 2.5 cm LA Systolic Diameter MM 4.0 cm LA Ao Ratio MM 1.6 AV Cusp Separation MM 2.0 cm DOPPLER AV Peak Velocity 182.0 cm/s AV Peak Gradient 13.2 mmHg LVOT Peak Velocity 114.0 cm/s LVOT Peak Gradient 5.2 mmHg AV Area Cont Eq pk 1.8 cm MV Area PHT 2.6 cm Mitral E Point Velocity 118.0 cm/s Mitral A Point Velocity 99.7 cm/s Mitral E to A Ratio 1.2 LV E' Lateral Velocity 8.3 cm/s Mitral E to LV E' Lateral Ratio 14.2 LV E' Septal Velocity 5.9 cm/s Mitral E to LV E' Septal Ratio 20.2 TR Peak Velocity 265.0 cm/s TR Peak Gradient 28.1 mmHg Right Atrial Pressure 10.0 mmHg Pulmonary Artery Systolic Pressu 38.1 mmHg Right Ventricular Systolic Press 38.1 mmHg PV Peak Velocity 85.5 cm/s PV Peak Gradient 2.9 mmHg FINDINGS LEFT VENTRICLE The left ventricular systolic function is normal with an estimated ejection fraction in the range of 60-65%. Normal left ventricular size. Mild concentric left ventricular hypertrophy. No regional wall motion abnormalities are present. Doppler parameters are consistent with a pseudonormal left ventricular filling pattern with concomin ant abnormal relaxation and increased filling pressure (grade 2 diastolic dysfunction). RIGHT VENTRICLE Normal right ventricular size and systolic function. LEFT ATRIUM The left atrial size is mildly dilated. RIGHT ATRIUM The right atrial size is normal. ATRIAL SEPTUM Normal atrial septal thickness. AORTA The aortic root and proximal ascending aorta are normal in size on limited imaging. MITRAL VALVE Structurally normal mitral valve. Mild mitral valve regurgitation. No mitral valve stenosis. AORTIC VALVE Trileaflet aortic valve. Trace aortic valve regurgitation. No aortic valve stenosis. Aortic valve sclerosis is present. TRICUSPID VALVE Structurally normal tricuspid valve. There is mild tricuspid valve regurgitation. The estimated pulmonary arterial pressure is 38.1 mmHg. PULMONARY VALVE No pulmonary valve regurgitation or stenosis. VESSELS The inferior vena cava is normal in size. PERICARDIUM No pericardial effusion. Mychal Bassett DO (Electronically Signed) Final Date:31 May 2017 19:05
[2017-05-31] MEDS ORDERED: METOPROLOL SUCCINATE 25 MG EXTENDED RELEASE TAB PO SCH (21:00)
[2017-06-01] MEDS: oxyCODONE/ACETAMINOPHEN 5 MG/325 MG TAB PO PRN (03:54)
[2017-06-01 04:58] VITALS: BP 148/74; PULSE 78; RESP 18; TEMP 98.8; O2SAT 98
[2017-06-01 08:00] VITALS: PULSE 58
[2017-06-01] MEDS: SEVELAMER CARBONATE 800 MG TAB PO SCH ×2 (08:00→14:06)
[2017-06-01] MEDS: INSULIN ASPART SUPPLEMENTAL SCALE SQ SCH ×2 (08:00→14:06)
[2017-06-01 08:15] VITALS: BP 181/82; PULSE 58; RESP 16; TEMP 98.1; O2SAT 99
[2017-06-01] MEDS: GABAPENTIN 100 MG CAP PO SCH (08:43)
[2017-06-01] MEDS: ASPIRIN 81 MG CHEW TAB PO SCH (08:43)
--- NOTE | 2017-06-01 08:49 | HHI.PR ---
Subjective Remarks Pt reports that she has been ambulating to the bathroom without any dizziness Overall she feels fluid overloaded but no outward signs of volume overload She is to have dialysis today Objective Vitals Vital Signs Date Time Temp Pulse Resp B/P (MAP) Pulse Ox O2 Delivery O2 Flow Rate FiO2 06/01/17 08:15 98.1 58 16 181/82 (115) 99 06/01/17 04:58 98.8 78 18 148/74 (98) 98 06/01/17 04:54 18 05/31/17 19:19 98.6 57 18 139/64 (89) 100 05/31/17 16:35 59 05/31/17 15:25 98.3 63 16 156/70 (98) 97 05/31/17 12:05 53 05/31/17 11:13 98.0 56 18 139/64 (89) 98 Result Diagram: 05/30/17201905/31/17 0449 Other Results Laboratory Tests Test 05/30/17 20:20 05/31/17 04:49 White Blood Count 4.4 TH/MM3 Red Blood Count 4.81 MIL/MM3 Hemoglobin 13.3 GM/DL Hematocrit 41.5 % Mean Corpuscular Volume 86.2 FL Mean Corpuscular Hemoglobin 27.6 PG Mean Corpuscular Hemoglobin Concent 32.0 % Red Cell Distribution Width 17.5 % Platelet Count 239 TH/MM3 Mean Platelet Volume 8.1 FL Neutrophils (%) (Auto) 80.8 % Lymphocytes (%) (Auto) 11.2 % Monocytes (%) (Auto) 7.8 % Eosinophils (%) (Auto) 0.0 % Basophils (%) (Auto) 0.2 % Neutrophils # (Auto) 3.6 TH/MM3 Lymphocytes # (Auto) 0.5 TH/MM3 Monocytes # (Auto) 0.3 TH/MM3 Eosinophils # (Auto) 0.0 TH/MM3 Basophils # (Auto) 0.0 TH/MM3 CBC Comment DIFF FINAL Differential Comment Prothrombin Time 10.6 SEC Prothromb Time International Ratio 1.0 RATIO Activated Partial Thromboplast Time 28.4 SEC Blood Urea Nitrogen 106 MG/DL 53 MG/DL Creatinine 11.30 MG/DL 6.98 MG/DL Random Glucose 112 MG/DL 132 MG/DL Total Protein 7.6 GM/DL 6.0 GM/DL Albumin 3.9 GM/DL 3.0 GM/DL Calcium Level 6.7 MG/DL 6.9 MG/DL Phosphorus Level 4.5 MG/DL Magnesium Level 2.3 MG/DL Alkaline Phosphatase 299 U/L 220 U/L Aspartate Amino Transf (AST/SGOT) 27 U/L 17 U/L Alanine Aminotransferase (ALT/SGPT) 32 U/L 25 U/L Total Bilirubin 0.6 MG/DL 0.8 MG/DL Sodium Level 139 MEQ/L 138 MEQ/L Potassium Level 6.5 MEQ/L 4.6 MEQ/L Chloride Level 103 MEQ/L 100 MEQ/L Carbon Dioxide Level 23.3 MEQ/L 29.2 MEQ/L Anion Gap 13 MEQ/L 9 MEQ/L Estimat Glomerular Filtration Rate 4 ML/MIN 7 ML/MIN Protein Corrected Calcium 6.5 MG/DL 7.5 MG/DL Total Creatine Kinase 158 U/L Creatine Kinase MB 2.0 NG/ML Troponin I 0.04 NG/ML 0.04 NG/ML Imaging Last [address] 05/30/171939 Signed Impressions: Service Date/Time: Tuesday, May 30, 2017 20:03 - CONCLUSION: Unremarkable and stable CT scan of the brain compared to the prior exam from 2010. Maurice Mac MD Objective Remarks General: NAD, AAOx3 Chest: CTA Cardiac: Regular, ilya Abd: +BS, soft ND/NT Ext: LUE with AVF present A/P Problem List: (1) End stage kidney disease ICD Codes: N18.6 - End stage kidney disease Status: Chronic Plan: - Pt is a 57 y/o female with ESRD on dialysis Tuesdays, , Saturdays, who presented to the ED via EMS for reported syncopal event on 05/30/17. - Pt reportedly missed her HD on 05/27/17 because she wasn't feeling well. She reported over the past few days she has been having dizziness, malaise, frontal headache, decreased appetite. - At admission she had noted acute worsening of her CKD due to missed dialysis sessions. Mild hyperkalemia noted. - Nephrology was consulted and pt had HD last night with 4L fluid dialyzed off. - Renal function is better today with Cr 6.98 and potassium 4.6 - Await repeat BMP today - Pt will continue HD on schedule, and will receive dialysis today (2) Syncope ICD Codes: R55 - Syncope and collapse Status: Acute Plan: - Pt takes Metoprolol 50mg po BID, Amlodipine 10mg po daily, Clonidine 0.1mg po BID, Lisinopril 20mg po daily PRN for SBP over 160, Renvela 1600mg po TID, Sensipar 60mg po daily, Fluoxetine 20mg po daily, Methocarbamol 500mg po BID PRN - She reports that she was recently resumed on her BP meds (metoprolol, Lisinopril, Clonidine, and Norvasc) within the last week or so because her BP has been rising. - Syncope may have been related to BP going too low or HR going too low vs. possibly metabolic disturbance/decreased PO intake - 2D echo --> estimated EF 60-65%, mild concentric LVH, grade 2 diastolic dysfunction, mild mitral valve regurgitation, trace aortic valve regurgitation, mild tricuspid valve regurgitation - Telemetry with sinus bradycardia into the 50s - Carotid US was negative. - Discussed the case with Pearl Lockett the [facility] for nephrology and she has recommended changing the Metoprolol to Coreg 3.125mg BID to start this evening, as well as changing the Clonidine to 0.1mg Q6H PRN for systolic BP over 180. She also discussed adding back in Lisinopril for daily dosing (on non dialysis days). - CT brain negative and no focal deficits on exam - Pt cleared for discharge by Nephrology after dialysis today (3) Hyperkalemia ICD Codes: E87.5 - Hyperkalemia Status: Acute Plan: - Secondary to ESRD. - Nephrology following. - No arrhythmia noted. - Telemetry. (4) Lumbar radicular pain ICD Codes: M54.16 - Lumbar radicular pain Status: Chronic Plan: - Pain control as needed (5) HTN (hypertension) ICD Codes: I10 - HTN (hypertension) Status: Chronic Plan: - See above - Pt was initially resumed on Metoprolol but at decrease dose of 25mg po BID given noted bradycardia currently. - the Metoprolol was stopped on 06/01 and pt was started on Coreg - Lisinopril to be resumed upon discharge at a daily dosing per nephrology - Cont. Norvasc 10mg po daily - Clonidine PRN - Monitor HR and BP (6) Chest pain ICD Codes: R07.9 - Chest pain Status: Chronic Plan: - Pt denied current or recent CP to me however reported intermittent chest pressure to ER provider. - Trop and EKG neg for acute findings. - She had neg cath with noted patent stent in LAD in 2011. - Neg Lexiscan in 03/2014. - Outpt notes indicate chronic intermittent anginal symptoms which are likely a/ w small vessel dz or spasm Assessment and Plan Patient examined. Assessment and plan formulated with Aracelis Burrows PA-C. I agree with the above. syncope. stop metoprolol. bradycardia. s/p HD x 2 renal wants stop metoprolol and d/c on lisinipril and coreg. f/u renal. Problem Qualifiers (1) Syncope: Qualified Codes: R55 - Syncope and collapse (2) HTN (hypertension): Qualified Codes: I10 - Essential (primary) hypertension Aracelis Burrows Jun 01, 2017 08:49 Glenn Machado MD Jun 01, 2017 11:50
[2017-06-01] MEDS ORDERED: cloNIDine HCL 0.1 MG TAB PO PRN (09:00)
--- NOTE | 2017-06-01 09:27 | HHI.NPPN ---
Subjective Complaints: Abdominal Pain Renal Failure: Chronic, End Stage Renal Disease Interval History Having lower back pain. Heart rate in high 50s. Seen during dialysis. (Pearl Lockett) Objective Data Data Vital Signs Date Time Temp Pulse Resp B/P (MAP) Pulse Ox O2 Delivery O2 Flow Rate FiO2 06/01/17 08:15 98.1 58 16 181/82 (115) 99 06/01/17 04:58 98.8 78 18 148/74 (98) 98 06/01/17 04:54 18 05/31/17 19:19 98.6 57 18 139/64 (89) 100 05/31/17 16:35 59 05/31/17 15:25 98.3 63 16 156/70 (98) 97 05/31/17 12:05 53 05/31/17 11:13 98.0 56 18 139/64 (89) 98 (Pearl Lockett) -: 05/30/17201905/31/17 0449 Imaging Last 72 hours Impressions Carotid Artery Ultrasound 05/31/17 0000 Signed Impressions: Service Date/Time: Wednesday, May 31, 2017 17:32 - CONCLUSION: No evidence of flow-limiting carotid stenosis. Maxime Cottrell MD Head CT 05/30/17 1940 Signed Impressions: Service Date/Time: Tuesday, May 30, 2017 20:03 - CONCLUSION: Unremarkable and stable CT scan of the brain compared to the prior exam from 2010. Maurice Mac MD (Pearl Lockett) Physical Exam General Appearance: Well Developed, No Acute Distress, Comfortable (Pearl Lockett) Eyes Eye Exam: Pupils Equal (Pearl Lockett) Neck Neck Exam: Neck Supple, Trachea Midline (Pearl Lockett) Pulmonary Resp Exam: Breath Sounds Equal, No Distress (Pearl Lockett) Cardiology CV Exam: Regular, Good Perfusion, Bradycardia (Pearl Lockett) Gastrointestinal/Abdomen GI Exam: Soft, Non-Tender, Bowel Sounds Present (Pearl Lockett) Genitourinary Exam: Clear Urine (Pearl Lockett) Musculoskeletal MS Exam: Joints Intact, Good Strength (Pearl Lockett) Integumentary Skin Exam: Warm, Dry, Intact (Pearl Lockett) Extremeties Extremities Exam: No Edema, Pedal Pulses Palpable (Pearl Lockett) Neurologic Neuro Exam: Alert, Awake, Oriented, Speech Clear, Moving All Extremities (Pearl Lockett) Psychiatric Psych Exam: Appropriate Responses (Pearl Lockett) Assessment/Plan Discussed Condition With: Patient Assessment Summary: Anemia of CKD, Hypertension, Diabetes Mellitus, End Stage Renal Disease Problem List: (1) ESRD (end stage renal disease) ICD Codes: N18.6 - ESRD (end stage renal disease) Status: Acute Plan: Seen during dialysis on a 3K, 350 BFR, 3L UF HD TTS, has existing out Avoid IVF administration High protein, low phosphorus diet AV access left arm works well, avoid left arm procedures Cleared for discharge after treatment. (2) Syncope ICD Codes: R55 - Syncope and collapse Status: Acute Plan: Imaging negative so far Work up per hospitalist (3) Metabolic bone disease ICD Codes: M89.8X9 - Metabolic bone disease Status: Acute Plan: On sevelamer with meals Hold Sensipar due to hypocalcemia (4) HTN (hypertension) ICD Codes: I10 - HTN (hypertension) Status: Chronic Plan: Bradycardic: Medication recommendations include changing metoprolol to carvedilol 3.125 mg BID, start tonight Norvasc 10 mg daily lisinopril 10 mg daily starting tomorrow clonidine as needed Not to take meds prior to dialysis if SBP is below 120 (5) Diabetes mellitus ICD Codes: E11.9 - Type 2 diabetes mellitus without complications Plan: Insulin as needed, maintain glucose 140-180 mg/dL while hospitalized (Pearl Lockett) Plan patient was seen and examined. Seen during dialysis. Agree with above assessment and plan. Antihypertensives changed. Discharge today. (Darshan Guzman MD) Problem Qualifiers (1) HTN (hypertension): Qualified Codes: I10 - Essential (primary) hypertension Pearl Lockett Jun 01, 2017 09:27 Darshan Guzman MD Jun 01, 2017 09:39
[2017-06-01] MEDS ORDERED: CLON.1 PO (11:47)
[2017-06-01] MEDS ORDERED: LISI10TA3 PO (11:47)
[2017-06-01] MEDS ORDERED: CARV3.125 PO (11:47)
--- NOTE | 2017-06-01 11:51 | HHI.DCPOC ---
Discharge Care Plan Diagnosis: (1) Diabetes mellitus (2) Metabolic bone disease (3) Lumbar radicular pain (4) HTN (hypertension) Goals to Promote Your Health Medication changes include: - changing metoprolol to carvedilol 3.125 mg twice daily, start tonight - Norvasc 10 mg daily - lisinopril 10 mg daily starting tomorrow - Clonidine 0.1 mg every 6 hours as needed for systolic BP over 180 Directions to Meet Your Goals Take your medications as prescribed Follow your dietary instruction Follow activity as directed Keep your appointments as scheduled Take your immunizations and boosters as scheduled If your symptoms worsen call your PCP, if no PCP go to Urgent Care Center or Emergency Room Smoking is Dangerous to Your Health. Avoid second hand smoke Call the 24-hour hour crisis hotline for domestic abuse at Aracelis Burrows Jun 01, 2017 11:51
[2017-06-01 12:20] VITALS: BP 147/64; PULSE 65; RESP 16; TEMP 98.1; O2SAT 98
[2017-06-01] MEDS: FLUoxetine HCL 20 MG CAP PO SCH (14:06)
[2017-06-01 17:03] LABS: BICARBONATE 33.8 MEQ/L (21.0-32.0); CALCIUM 7.7 MG/DL (8.5-10.1); CREATININE 6.16 MG/DL (0.50-1.00)
[2017-06-01] MEDS ORDERED: CARVEDILOL 3.125 MG TAB PO SCH (21:00)
== END 2017-06-01 17:16 | disposition home or self-care (01) | DRG 640 ==
LOC: NEPE 18:33 → NEDA 21:57 → OBSVTOIN 22:57 → NEPHCDU 05-31 02:45 → HCIS 06-01 11:11 → NEPHCDU 06-01 11:12
PROVIDERS: ADMIT Hospitalist; ATTEND Hospitalist
PROC: 5A1D70Z Performance of Urinary Filtration, Intermittent, Less than 6 Hours Per Day (ICD-10-PCS; principal; 2017-05-30)
DX: E87.5 Hyperkalemia (principal); N18.6 End stage renal disease; E11.22 Type 2 diabetes mellitus with diabetic chronic kidney disease; N25.81 Secondary hyperparathyroidism of renal origin; D68.0 Von Willebrand disease; I12.0 Hypertensive chronic kidney disease with stage 5 chronic kidney disease or end stage renal disease; E11.40 Type 2 diabetes mellitus with diabetic neuropathy, unspecified; N25.0 Renal osteodystrophy; E83.51 Hypocalcemia; E11.319 Type 2 diabetes mellitus with unspecified diabetic retinopathy without macular edema; K21.9 Gastro-esophageal reflux disease without esophagitis; J45.909 Unspecified asthma, uncomplicated; I25.10 Atherosclerotic heart disease of native coronary artery without angina pectoris; H40.9 Unspecified glaucoma; E78.00 Pure hypercholesterolemia, unspecified; D63.1 Anemia in chronic kidney disease; D57.3 Sickle-cell trait; R55 Syncope and collapse; M54.16 Radiculopathy, lumbar region; E87.70 Fluid overload, unspecified; F32.9 Major depressive disorder, single episode, unspecified; F41.9 Anxiety disorder, unspecified; M19.90 Unspecified osteoarthritis, unspecified site; M48.00 Spinal stenosis, site unspecified; R00.1 Bradycardia, unspecified; Z99.2 Dependence on renal dialysis; Z95.5 Presence of coronary angioplasty implant and graft; Z79.4 Long term (current) use of insulin
CPT/HCPCS: 70450; 80048; 80053; 82550; 82552; 82948; 83735; 84100; 84484; 85025; 85610; 85730; 90935; 93005; 93306; 93880; G0257; J0610; J1815